=== PATIENT | female | born 1965 | race Caucasian/White ===

== ENCOUNTER 2019-08-16 09:06 | Emergency (ER) | payer SELFPAY ==
[~2019-08-16] VITALS: Ht 160 cm; Wt 77.3 kg
[~2019-08-16 09:06] MED LIST: NORCO 325 MG-51 TAB PO; PRILOSEC10 MG; XANAX .25M0.25 MG/TA PO; ZITHROMAX 250M250 MG PO; ZOFRAN 4MG T4 MG/TAB PO
[2019-08-16 09:13] VITALS: BP 124/62; TEMP 98.9
[2019-08-16 10:31] VITALS: PULSE 71
== END 2019-08-16 10:27 | disposition home or self-care (01) ==
LOC: COL.ER 09:06
DX: L50.9 Urticaria, unspecified (principal)
CPT/HCPCS: J2930

== ENCOUNTER 2020-10-14 12:44 | Emergency (ER) | payer SELFPAY ==
[~2020-10-14] VITALS: Ht 160 cm; Wt 67.3 kg
[2020-10-14 13:08] VITALS: TEMP 98.6
[2020-10-14] MEDS ORDERED: PREDNISONE20 MG PO (16:41)
[2020-10-14 17:00] VITALS: BP 120/79; PULSE 84
== END 2020-10-14 17:00 | disposition home or self-care (01) ==
LOC: COL.ER 12:44
DX: U07.1 COVID-19 (principal)
CPT/HCPCS: J7030